=== PATIENT | female | born 2000 | race Caucasian/White ===

== ENCOUNTER 2023-10-27 06:00 | Inpatient (IN) | payer BC, OTHER ==
[2023-10-27] MEDS ORDERED: Bupivacaine 0.25% HCL 30 ML VIAL ONE (08:00)
[2023-10-27] MEDS ORDERED: Lidocaine 1% (PF) 30 ML VIAL SC PRN (19:30)
[2023-10-27] MEDS ORDERED: hydrALAZINE 20 MG/ML VIAL SLOW IVP PRN (19:30)
[2023-10-27] MEDS ORDERED: Promethazine HCl 25 MG/ML VIAL IM PRN (19:30)
[2023-10-27] MEDS: Lactated Ringer's 1,000 ML IV SCH ×2 (19:30→23:09)
[2023-10-27] MEDS ORDERED: Ondansetron PF 4 MG/2 ML Vial IVP PRN (19:30)
[2023-10-27] MEDS ORDERED: Carboprost 250 MCG/ML AMP IM PRN (19:31)
[2023-10-27] MEDS ORDERED: fentaNYL 50 mcg/mL 1 mL Vial SLOW IVP PRN (19:31)
[2023-10-27] MEDS ORDERED: Acetaminophen 500 MG TAB PO PRN (19:31)
[2023-10-27] MEDS ORDERED: Tranexamic Acid 1,000 MG/10 ML VIAL IVP PRN (19:31)
[2023-10-27] MEDS ORDERED: Methylergonovine 0.2 MG/ML VIAL IM PRN (19:31)
[2023-10-27] MEDS ORDERED: Misoprostol 200 MCG TAB PR PRN (19:31)
[2023-10-27 19:35] VITALS: BMI 30.8
[2023-10-27] MEDS ORDERED: Oxytocin 30 units/NS 500 ML 500 ML IV SCH ×2 (19:45)
[2023-10-27 19:49] LABS: Hematocrit 31.5 % (34.9-44.5); Mean Corpuscular HGB CONC 31.7 g/dL (32.0-36.0); Mean Corpuscular Hemoglobin 26.5 pg (27.0-33.0); Mean Corpuscular Volume 83.6 fl (81.6-98.3); Mean Platelet Volume 10.1 fl (7.4-10.4); Platelet Count 409 10x3/uL (150-450); RBC Distribution Width 14.6 % (11.5-14.5); Red Blood Cell (RBC) Count 3.77 10x6/uL (3.90-5.03); White Blood Cell (WBC) Count 9.4 10x3/uL (3.5-10.5)
[2023-10-27 20:21] LABS: HBSAg Index 0.18 S/CO (0-0.99); Hep B Surf Ag - L&D Non-Reactive S/CO (NonReactive)
[2023-10-27 20:22] LABS: Syphilis Antibody Nonreactive (Nonreactive); Syphilis Antibody Index 0.05 S/CO (<1.00 Non-Reactive)
[2023-10-27] MEDS ORDERED: Misoprostol 100 MCG TAB VAG SCH (20:45)
[2023-10-28] MEDS ORDERED: fentaNYL/Ropivacaine Epidural 100 ML ONE (01:45)
[2023-10-28] MEDS: Lactated Ringer's 1,000 ML IV SCH (02:42)
[2023-10-28] MEDS ORDERED: Acetaminophen 325 MG TAB PO PRN (02:44)
[2023-10-28] MEDS ORDERED: Moisturizing Cream (Eucerin) 113 GM JAR TOP PRN (02:44)
[2023-10-28] MEDS ORDERED: Ondansetron PF 4 MG/2 ML Vial IVP PRN (02:44)
[2023-10-28] MEDS ORDERED: ePHEDrine Sulfate 50 MG/10 ML VIAL SLOW IVP PRN (02:44)
[2023-10-28] MEDS ORDERED: Naloxone HCl 0.4 mg/ml Vial IVP PRN ×2 (02:44)
[2023-10-28] MEDS ORDERED: Lactated Ringer's 500 ML IV PRN (02:44)
[2023-10-28] MEDS ORDERED: diphenhydrAMINE 50 MG/ML VIAL IVP PRN (02:44)
[2023-10-28] MEDS ORDERED: Promethazine HCl 25 MG/ML VIAL IM PRN (02:44)
[2023-10-28] MEDS ORDERED: Communication Order-Pharmacy FS SCH (02:45)
[2023-10-28] MEDS ORDERED: fentaNYL 2 mcg/Ropivacaine 0.2% Epidural 100 ML CADD EPIDURAL SCH (02:45)
[2023-10-28] MEDS: Oxytocin 30 units/NS 500 ML 500 ML IV SCH ×2 (05:10→05:58)
[2023-10-28] MEDS ORDERED: hydrALAZINE 20 MG/ML VIAL SLOW IVP PRN (07:52)
[2023-10-28] MEDS ORDERED: Bisacodyl 10 MG SUPP PR PRN (07:52)
[2023-10-28] MEDS ORDERED: Benzocaine-Menthol 82.5 ML CAN TOP PRN (07:52)
[2023-10-28] MEDS ORDERED: Lanolin Ointment 7 GM TUBE TOP PRN (07:52)
[2023-10-28] MEDS ORDERED: Milk Of Magnesia 30 ML UDCUP PO PRN (07:52)
[2023-10-28] MEDS ORDERED: Preparation H Ointment 28 GM TUBE PR PRN (07:52)
[2023-10-28] MEDS ORDERED: Boostrix 0.5 ML (Tdap) VIAL (>/=7 yrs of age) IM ONE (09:00)
[2023-10-28] MEDS: Ibuprofen 800 MG TAB PO SCH ×2 (09:41→17:18)
[2023-10-28] MEDS: Prenatal Vitamin 1 TAB PO SCH (09:41)
[2023-10-28] MEDS: Docusate 100 MG CAP PO SCH ×2 (09:41→21:31)
[2023-10-28] MEDS: Ferrous Sulfate 325 MG TAB PO SCH ×2 (10:47→18:45)
[2023-10-29] MEDS: Ibuprofen 800 MG TAB PO SCH ×3 (01:08→17:33)
[2023-10-29] MEDS: Ferrous Sulfate 325 MG TAB PO SCH ×2 (08:05→16:16)
[2023-10-29] MEDS: Docusate 100 MG CAP PO SCH (09:14)
[2023-10-29] MEDS: Prenatal Vitamin 1 TAB PO SCH (09:14)
[2023-10-29 16:16] VITALS: BP 126/76; TEMP 98.3
== END 2023-10-29 18:20 | disposition home or self-care (01) | DRG 807 ==
LOC: CSHLD 18:59 → CSHPP 10-28 07:30
PROVIDERS: ADMIT Family Medicine; ATTEND Obstetrics & Gynecology
PROC: 10E0XZZ Delivery of Products of Conception, External Approach (ICD-10-PCS; principal; 2023-10-28)
PROC: 3E0P7VZ Introduction of Hormone into Female Reproductive, Via Natural or Artificial Opening (ICD-10-PCS; 2023-10-28)
PROC: 3E033XZ Introduction of Vasopressor into Peripheral Vein, Percutaneous Approach (ICD-10-PCS; 2023-10-28)
DX: O99.02 Anemia complicating childbirth (principal); Z37.0 Single live birth; O75.89 Other specified complications of labor and delivery; Z3A.39 39 weeks gestation of pregnancy; F43.10 Post-traumatic stress disorder, unspecified; F31.9 Bipolar disorder, unspecified; Z80.3 Family history of malignant neoplasm of breast; O71.82 Other specified trauma to perineum and vulva
CPT/HCPCS: 36415; 51702; 85027; 86780; 86850; 86900; 86901; 87340; J2590; J7120; S0020